=== PATIENT | female | born 1990 | race American Indian/Alaskan Native ===

== ENCOUNTER 2018-08-29 15:58 | Emergency (ER) | payer OTHER ==
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
[2018-08-29 20:08] VITALS: BP 103/52
== END 2018-08-29 20:09 | disposition home or self-care (01) ==
LOC: ED 15:58
DX: M54.9 Dorsalgia, unspecified (principal); M54.2 Cervicalgia; F31.9 Bipolar disorder, unspecified; F41.9 Anxiety disorder, unspecified; V49.49XA Driver injured in collision with other motor vehicles in traffic accident, initial encounter; Y93.89 Activity, other specified; Y92.410 Unspecified street and highway as the place of occurrence of the external cause; Y99.8 Other external cause status
CPT/HCPCS: 71046; 72040; 72100